=== PATIENT | female | born 1980 | race Caucasian/White ===

== ENCOUNTER 2021-09-28 18:55 | Emergency (ER) | payer OTHER ==
[2021-09-28] MEDS ORDERED: Ketorolac Tromethamine 30 MG/ML VIAL ONE (20:13)
[2021-09-28] MEDS ORDERED: HYDROcodone/Acetaminophen 5/325 mg Tablet ONE (20:13)
== END 2021-09-28 21:52 | disposition home or self-care (01) ==
LOC: CSHERS 18:55
DX: M79.671 Pain in right foot (principal)
CPT/HCPCS: J1885